=== PATIENT | male | born 1950 | race Caucasian/White ===

== ENCOUNTER 2021-05-26 22:11 | Emergency (ER) | payer OTHER ==
[~2021-05-26] VITALS: Ht 175.3 cm; Wt 81.6 kg
[2021-05-26 22:34] VITALS: BP 162/99
[2021-05-26] MEDS ORDERED: ZINC SULF 220 MG CAP PO ONE (22:40)
[2021-05-26] MEDS ORDERED: ERGOCALCIFEROL 50,000 IU SGL PO ONE (22:40)
--- NOTE | 2021-05-26 22:40 | NUR ---
SEEN AND EXAMINED BY ADELINA
--- NOTE | 2021-05-26 23:00 | NUR ---
MEDICATED PER ERMDS ORDER, TOLERATED WELL.
[2021-05-26] MEDS ORDERED: [UNRECOGNIZED DRUG - CODE] PO (23:39)
[2021-05-26] MEDS ORDERED: IVER3TAB2 PO (23:39)
[2021-05-26] MEDS ORDERED: DEC4 PO (23:39)
[2021-05-26] MEDS ORDERED: ZINC50TA76 PO (23:39)
[2021-05-26] MEDS ORDERED: DEXAMETHASONE 4 MG TAB ONE (23:55)
[2021-05-26] MEDS ORDERED: CHOLECALCIFEROL 1,000 IU TAB ONE (23:57)
[2021-05-26] MEDS ORDERED: ZINC SULF 220 MG CAP ONE (23:58)
== END 2021-05-27 00:31 | disposition home or self-care (01) ==
LOC: MED 22:11
DX: U07.1 COVID-19 (principal); Z79.899 Other long term (current) drug therapy; Z59.00 Homelessness unspecified
CPT/HCPCS: 71045; 99284